=== PATIENT | male | born 1990 | race Caucasian/White ===

== ENCOUNTER 2017-08-02 20:12 | Emergency (ER) | payer MEDICAID, OTHER ==
[~2017-08-02] VITALS: Ht 180.3 cm; Wt 81.6 kg
--- NOTE | 2017-08-02 20:44 | ED Psychosocial ---
General Chief Complaint: Psych/Social Disorder Stated Complaint: SUICIDAL IDEATION Source: patient Exam Limitations: no limitations History of Present Illness Time seen by provider: 20:39 Initial Comments Patient presents to ER by private conveyance with a chief complaint of suicidal ideation earlier today. He has no plan or current suicidal ideation but he decided to come in to get some help. He says he has a history of bipolar disorder he is on Seroquel, lamotrigine, trazodone, gabapentin and Klonopin. He is seen at [facility]. He does have a history of suicide attempt by slitting his wrist years ago as well as suicidal ideation him before that. He says these feelings come and go with his bipolar disorder. He says he would prefer not to have inpatient psychiatric hospitalization rather he would like to do outpatient follow-up if at all possible. He denies current suicidal ideation or having a plan. He states if he could get in to see someone in the next day or 2 that that would work and he does have his and 1-year-old daughter at home that he wants to live for and his will watch him. He says he took his medication tonight and is wondering if he could have something else that might help him. Patient has been reducing his cigarette use and is down to Court a pack per day. Allergies and Home Medications Allergies Coded Allergies: No Known Drug Allergies (Unverified , 08/02/17) Constitutional: No chills, No diaphoresis, No fever, No malaise EENTM: No ear discharge, No ear pain, No blurred vision Respiratory: cough, phlegm, No short of breath, No wheezing, No other Cardiovascular: No chest pain Gastrointestinal: No abdominal pain, No constipation, No diarrhea, No nausea, No vomiting Genitourinary: No discharge, No dysuria Musculoskeletal: No back pain, No joint pain Skin: No pruritus, No rash Psychiatric/Neurological: Denies Headache, Denies Numbness Past Hnbnuux-Wkvjgs-Evkyng Hx Patient Social History Alcohol Use: Denies Use Recreational Drug Use: No Smoking Status: Current Everyday Smoker Type Used: Cigarettes 2nd Hand Smoke Exposure: Yes Recent Foreign Travel: No Contact w/Someone Who Travel: No Recent Hopitalizations: No Seasonal Allergies Seasonal Allergies: No Surgeries History of Surgeries: No Psychosocial History of Psychiatric Problem: Yes Behavioral Health Disorders: Anxiety, Bipolar, Depression Physical Exam Vital Signs Vital Sign - Last 12Hours 1/2/18 20:25 Temp 97.4 Pulse 146 Resp 20 B/P (MAP) 136/94 (108) Pulse Ox 97 O2 Delivery Room Air Capillary Refill : General Appearance: WD/WN, no apparent distress HEENT: PERRL/EOMI, pharynx normal Neck: non-tender, supple, normal inspection Respiratory: chest non-tender, no respiratory distress, no accessory muscle use , rhonchi (few bilateral upper) Cardiovascular: normal peripheral pulses, regular rate, rhythm, no edema Peripheral Pulses: 2+ Radial Pulses (R), 2+ Radial Pulses (L) Gastrointestinal: normal bowel sounds, non tender, soft Extremities: normal range of motion, no pedal edema, normal capillary refill Neurologic/Psychiatric: alert, normal mood/affect, oriented x 3, other (normal gait) Appearance/Memory: appropriate appearance, appropriate insight, neat Behavior/Eye Contact: cooperative, good eye contact, normal speech Thoughts/Hallucinations: normal thought pattern, no apparent hallucination Skin: normal color, warm/dry Progress/Results/Core Measures Results/Orders My Orders Orders - SHAMIKA SAAVEDRA Ekg Tracing (08/02/17 20:23) Olanzapine Orally Dissolve Tab (Zyprexa (08/02/17 21:00) Chest Pa/Lat (2 View) (08/02/17 21:20) Medications Given in ED Current Medications Medications Dose Ordered Sig/Garfield Route Start Time Stop Time Status Last Admin Dose Admin Olanzapine 5 mg ONCE ONCE PO 08/02/17 21:00 08/02/17 21:01 DC 08/02/17 21:09 5 MG Vital Signs/I&O Vital Sign - Last 12Hours 08/02/17 20:25 Temp 97.4 Pulse 146 Resp 20 B/P (MAP) 136/94 (108) Pulse Ox 97 O2 Delivery Room Air Progress Note #1: Time: 20:44 Progress Note We will ask [facility] to come out and evaluate the patient and help establish a plan to follow up tomorrow with outpatient. His rhonchi are probably from upper airway sounds organ he went to a chest x-ray thinking about bronchitis considering he's had a more productive cough lately even though is trying to quit smoking. We will also allow him to have a single dose of Zyprexa which might help him tonight. Progress Note #2: Time: 20:53 Progress Note Discussed the case with [facility] and they say there on a run to [place] and maybe up to 3 or 4 hours before they're done with the screen come see him. We will give him Zyprexa 5 mg by mouth and see how he is feeling. If he has been nonsuicidal the entire time and we can set up an plan to call in the morning and have someone to take him home and watch him tonight then then we may be able to establish an outpatient follow-up. Diagnostic Imaging Diagonstic Imaging: Xray Plain Films/CT/US/NM/MRI: chest (2v) Comments No acute cardiopulmonary processes noted. Reviewed: Reviewed by Me Departure Impression Impression: Primary Impression: Suicidal ideation Additional Impression: History of bipolar disorder Disposition: HOME, SELF-CARE Condition: Improved Departure-Patient Inst. Decision time for Depature: 21:52 Referrals: BRITNAY BRISCOE MD (PCP/Family) Primary Care Physician Patient Instructions: SUICIDE CONTRACT, Suicide Prevention Add. Discharge Instructions: Please go home and stay with a family member or friend who will watch you until tomorrow morning call your primary care office to get set up for some outpatient follow-up with mental health. If he cannot get this set up easily in the morning then you can call [facility] at [phone]. If you begin to feel suicidal or have thoughts of harming herself or others please return to the ER immediately and call someone who can come and help you ALANNAH. All discharge instructions reviewed with patient and/or family. Voiced understanding. Copy Copies To 1: PRIYANK ROMAN TITUS J Aug 02, 2017 20:44
[2017-08-02] MEDS ORDERED: OLANZapine 5 MG ODT (ZyPREXA ZYDIS) PO ONE (21:00)
[2017-08-02 22:00] VITALS: BP 136/94
--- NOTE | 2017-08-02 22:38 | Diagnostic Imaging Report ---
INDICATION: Cough, congestion COMPARISON: None available TECHNIQUE: Frontal and lateral radiographs of the chest dated 08/02/2017. FINDINGS: The cardiac silhouette is within normal limits. No significant pulmonary vascular congestion. The lungs are clear of focal pulmonary opacity. No pleural effusion. No pneumothorax. No acute osseous abnormality. IMPRESSION: No acute cardiopulmonary abnormality. Dictated by: Dictated on workstation # [id number]
== END 2017-08-02 22:00 | disposition home or self-care (01) ==
LOC: ER 20:14
DX: R45.851 Suicidal ideations (principal); F41.9 Anxiety disorder, unspecified; F31.9 Bipolar disorder, unspecified; F17.210 Nicotine dependence, cigarettes, uncomplicated; Z91.5 Personal history of self-harm
CPT/HCPCS: 71046; 99284

== ENCOUNTER 2017-08-22 06:32 | Emergency (ER) | payer MEDICAID ==
[~2017-08-22] VITALS: Ht 185.4 cm; Wt 108.9 kg
[2017-08-22] MEDS ORDERED: TRAZ100T92 (06:50)
[2017-08-22] MEDS ORDERED: QUET400T12 (06:50)
[2017-08-22] MEDS ORDERED: CLON1TAB3 (06:50)
[2017-08-22] MEDS ORDERED: LAMO100T (06:50)
[2017-08-22] MEDS ORDERED: GABA-488 (06:50)
--- NOTE | 2017-08-22 07:22 | ED Cough/URI ---
General Chief Complaint: Cough/Cold/Flu Symptoms Stated Complaint: FLU VOMITING COUGH SORE THROAT Nursing Triage Note: cough, fever, chest congestion, sore throat Source: patient, family Exam Limitations: no limitations History of Present Illness Date Seen by Provider: Aug 22, 2017 Time Seen by Provider: 07:18 Initial Comments This 27-year-old white male presents with a week's history of cough sore throat and vomiting and fever. Multiple family members have similar symptoms. Patient denies headache or stiff neck, photophobia, hematemesis or bloody stools , significant localized abdominal pain, or productive cough. Patient's past medical history includes anxiety and depression but no history of significant respiratory disease. Allergies and Home Medications Allergies Coded Allergies: No Known Drug Allergies (Unverified , 08/02/17) Home Medications Clonazepam 1 Mg Tablet, Unknown Dose, (Reported) Gabapentin 300 Mg Capsule, (Reported) Lamotrigine 100 Mg Tablet, (Reported) Quetiapine Fumarate 400 Mg Tablet, (Reported) Trazodone HCl 100 Mg Tablet, (Reported) Constitutional: fever, malaise EENTM: No ear pain Respiratory: see HPI, cough, No short of breath Cardiovascular: No chest pain Gastrointestinal: No abdominal pain, No diarrhea, nausea, vomiting Genitourinary: No dysuria Musculoskeletal: No back pain Skin: No rash Psychiatric/Neurological: Anxiety, Depressed Hematologic/Lymphatic: No Symptoms Reported Immunological/Allergic: no symptoms reported Past Fdufslc-Hbpjvl-Uqsaku Hx Patient Social History Alcohol Use: Denies Use Recreational Drug Use: No Smoking Status: Current Everyday Smoker Type Used: Cigarettes 2nd Hand Smoke Exposure: Yes Recent Foreign Travel: No Contact w/Someone Who Travel: No Recent Infectious Disease Expo: No Recent Hopitalizations: No Immunizations Up To Date Tetanus Booster (TDap): Unknown PED Vaccines UTD: Yes Seasonal Allergies Seasonal Allergies: No Surgeries History of Surgeries: No Respiratory History of Respiratory Disorde: No Cardiovascular History of Cardiac Disorders: No Neurological History of Neurological Disord: No Genitourinary History of Genitourinary Disor: No Gastrointestinal History of Gastrointestinal Di: No Musculoskeletal History of Musculoskeletal Dis: No Endocrine History of Endocrine Disorders: No HEENT History of HEENT Disorders: No Cancer History of Cancer: No Psychosocial History of Psychiatric Problem: Yes Behavioral Health Disorders: Anxiety, Bipolar, Depression Integumentary History of Skin or Integumenta: No Reviewed Nursing Assessment Reviewed/Agree w Nursing PMH: Yes Physical Exam Vital Signs Vital Sign - Last 12Hours 08/22/17 06:40 Temp 100.6 Pulse 103 Resp 17 B/P (MAP) 136/91 (106) Pulse Ox 97 O2 Delivery Room Air Capillary Refill : Less Than 3 Seconds General Appearance: WD/WN, no apparent distress Eyes: Bilateral Eye Normal Inspection HEENT: TMs normal, pharynx normal Neck: non-tender, supple Respiratory: chest non-tender, lungs clear, normal breath sounds Cardiovascular: normal peripheral pulses, regular rate, rhythm Gastrointestinal: normal bowel sounds, non tender Extremities: normal range of motion, non-tender, normal inspection Neurologic/Psychiatric: no motor/sensory deficits, alert Skin: normal color, warm/dry, No rash Progress/Results/Core Measures Suspected Sepsis Recent Fever Within 48 Hours: No Infection Criteria Present: None New/Unexplained Altered Menta: No Sepsis Screen: No Definite Risk Sepsis Diagnosis: SIRS Temperature:100.6 Pulse: 103 Respiratory Rate: 17 Blood Pressure 136 /91 Mean: 106 Results/Orders Micro Results Microbiology 08/22/17 Influenza Types A,B Antigen (ANABELLE) - Final, Complete My Orders Orders - SEAN PRINCE MD Influenza A And B Antigens (08/22/17 06:39) Vital Signs/I&O Vital Sign - Last 12Hours 08/22/17 06:40 Temp 100.6 Pulse 103 Resp 17 B/P (MAP) 136/91 (106) Pulse Ox 97 O2 Delivery Room Air Capillary Refill : Less Than 3 Seconds Blood Pressure Mean: 106 Progress Note : Time: 07:57 Progress Note The patient's flu swab for A and B were negative. Departure Impression Impression: Primary Impression: Influenza-like symptoms Disposition: 01 HOME, SELF-CARE Condition: Unchanged Departure-Patient Inst. Decision time for Depature: 07:58 Referrals: BRITANY ALVES MD (PCP/Family) Primary Care Physician Patient Instructions: Flu, Adult (DC) Add. Discharge Instructions: Rest, fluids, Tylenol alternating with ibuprofen for pain and fever. Close follow-up with Dr. Alves. Return if any problems or questions. All discharge instructions reviewed with patient and/or family. Voiced understanding. SEAN PRINCE MD Aug 22, 2017 07:22
[2017-08-22 08:09] VITALS: BP 136/91
== END 2017-08-22 08:09 | disposition home or self-care (01) ==
LOC: EDUNIT# 06:32 → ER 06:35
DX: J11.1 Influenza due to unidentified influenza virus with other respiratory manifestations (principal); F41.9 Anxiety disorder, unspecified; F31.9 Bipolar disorder, unspecified; F17.210 Nicotine dependence, cigarettes, uncomplicated
CPT/HCPCS: 87804; 99282

== ENCOUNTER → 2018-01-14 | Outpatient (CLI) | payer MEDICAID ==
[~2018-01-14] MED LIST: CLON1TAB3; GABA-488; LAMO100T; QUET400T12; TRAZ100T92
--- NOTE | 2018-01-14 09:28 | Diagnostic Imaging Report ---
PROCEDURE: MRI lumbar spine. TECHNIQUE: Multiplanar, multisequence MRI of the lumbar spine was performed without contrast. INDICATION: Low back pain with right-sided sciatica. FINDINGS: Alignment of the lumbar spine is normal. The vertebral body heights are well-maintained. There is no focal marrow signal abnormality demonstrated to suggest an acute osseous injury or underlying osseous lesion. The facets are normally aligned. There is no MR evidence of a pars defect. The lower thoracic cord demonstrates no evidence of signal abnormality or abnormal expansion. The conus terminates at a normal level. At T12-L1, L1-L2 and L2-3 are unremarkable. At L3-4 there is some mild facet hypertrophy and ligamentous thickening but no disc bulge or herniation and no significant stenosis. At L4-5 there is disc degeneration with annular disc bulging and a small superimposed central disc protrusion. There is facet arthropathy and ligamentous thickening. There is mild narrowing of the central canal and mild narrowing of both lateral recesses. There is mild to moderate narrowing of the left and mild right neural foraminal stenosis. At L5-S1, disc bulge, endplate spurring and facet arthropathy are present without significant central canal or lateral recess stenosis. There is moderate to severe left and mild to moderate right neuroforaminal stenosis. The paraspinal soft tissues are unremarkable. Aorta normal in caliber. The kidneys appear nonobstructed. IMPRESSION: 1. Normal height and alignment of lumbar spine without evidence of an acute osseous abnormality. 2. Disc degeneration and facet arthropathy within the lower lumbar spine at the L4-5 and L5-S1 levels. No high-grade central canal stenosis demonstrated. Variable degrees of lateral recess and neural foraminal stenosis detailed above. Dictated by: Dictated on workstation # [id number]
== END ==
LOC: RAD 08:02
PROVIDERS: ATTEND Family Medicine
DX: M99.73 Connective tissue and disc stenosis of intervertebral foramina of lumbar region (principal); M51.16 Intervertebral disc disorders with radiculopathy, lumbar region; M51.27 Other intervertebral disc displacement, lumbosacral region; M46.87 Other specified inflammatory spondylopathies, lumbosacral region
CPT/HCPCS: 72148